=== PATIENT | female | born 2000 | race Caucasian/White ===

== ENCOUNTER 2024-03-17 16:24 | Emergency (ER) | payer BC, MEDICAID ==
[~2024-03-17] VITALS: Ht 154.9 cm; Wt 125.6 kg
[2024-03-17 16:38] VITALS: BP 104/83; PULSE 91; RESP 18; TEMP 97.9; O2SAT 99
[2024-03-17] MEDS: HYDROCODONE/ACETAMINOPHEN 5/325MG TABLET PO STA (18:58)
[2024-03-17] MEDS ORDERED: IBUP-2029 PO (19:21)
[2024-03-17] MEDS ORDERED: DOXY100C74 MT (19:21)
[2024-03-17] MEDS ORDERED: BO1 TP (19:21)
[2024-03-17] MEDS ORDERED: NAPR-681 PO (20:23)
[2024-03-17] MEDS: BACITRACIN ZINC OINT UDPKT TOP NR (20:46)
[2024-03-17] MEDS: LIDOCAINE HCL/PF 1% 10 MG/ML 5ML VIAL INFIL NR (20:47)
== END 2024-03-17 20:54 | disposition home or self-care (01) ==
LOC: ER 16:24
DX: S92.354A Nondisplaced fracture of fifth metatarsal bone, right foot, initial encounter for closed fracture (principal); S93.401A Sprain of unspecified ligament of right ankle, initial encounter; J45.909 Unspecified asthma, uncomplicated; Z90.89 Acquired absence of other organs; X58.XXXA Exposure to other specified factors, initial encounter; Y93.89 Activity, other specified; Y92.89 Other specified places as the place of occurrence of the external cause; Y99.8 Other external cause status
CPT/HCPCS: 99284; 29515; 81025; 73562; 73610; J3490